=== PATIENT | male | born 1970 | race Caucasian/White ===

== ENCOUNTER 2017-11-08 11:58 | Inpatient (IN) | payer BC, OTHER ==
[~2017-11-08] VITALS: Ht 177.8 cm; Wt 87.1 kg
[2017-11-08 12:30] VITALS: BP 196/107
[2017-11-08] MEDS ORDERED: ACETAMINOPHEN 325 MG TABLET PO PRN (12:45)
[2017-11-08] MEDS ORDERED: MAG HYDROX/AL HYDROX/SIMETH 30 ML LIQUID UDC PO PRN (12:45)
[2017-11-08] MEDS ORDERED: MIRALAX 17 GM POWD.PACK PO PRN (12:45)
[2017-11-08] MEDS ORDERED: LORAZEPAM 1 MG TABLET PO PRN (12:45)
[2017-11-08] MEDS ORDERED: IBUPROFEN 400 MG TABLET PO PRN (12:45)
[2017-11-08] MEDS ORDERED: NICOTINE 14 MG/24HR PATCH TD PRN (12:45)
[2017-11-08] MEDS ORDERED: LOPERAMIDE HCL 2 MG CAPSULE PO PRN ×2 (12:45)
[2017-11-08] MEDS ORDERED: NICOTINE POLACRILEX 4 MG GUM-PK OF TEN BC PRN (12:45)
[2017-11-08] MEDS ORDERED: DICYCLOMINE HCL 20 MG TABLET PO PRN (12:45)
[2017-11-08] MEDS ORDERED: MAGNESIUM HYDROXIDE 30 ML LIQUID UDC PO PRN (12:45)
[2017-11-08] MEDS ORDERED: ONDANSETRON ODT 4 MG TAB.RAPDIS SL PRN (12:45)
[2017-11-08] MEDS ORDERED: ONDANSETRON 4 MG/2 ML VIAL IM PRN (12:45)
[2017-11-08] MEDS ORDERED: THIAMINE HCL 200 MG/2 ML VIAL IM ONE (12:45)
[2017-11-08] MEDS ORDERED: diphenhydrAMINE 50 MG CAPSULE PO PRN (12:45)
[2017-11-08 13:27] LABS: ALANINE AMINOTRANSFERASE 51 U/L (16-63); ALKALINE PHOSPHATASE 44 U/L (50-136); AMYLASE 60 U/L (25-115); ASPARTATE AMINOTRANSFERASE 25 U/L (15-37); BILIRUBIN,TOTAL 0.6 mg/dL (0.2-1.0); CARBON DIOXIDE 28 mmol/L (21-32); CHLORIDE 104 mmol/L (98-107); CREATININE 1.3 mg/dL (0.6-1.3); GLUCOSE 93 mg/dL (74-106); TOTAL PROTEIN, SERUM 8.2 g/dL (6.4-8.2); UREA NITROGEN, BLOOD 17 mg/dL (7-18)
[2017-11-08 13:33] LABS: ETHANOL < 3 MG/DL (0-0)
[2017-11-08 14:15] LABS: BASOPHILS # (AUTO) 0.1 K/uL (0.0-8.0); BASOPHILS % (AUTO) 0.7 % (0.0-2.0); EOSINOPHILS # (AUTO) 0.1 K/uL (0.0-0.7); HEMATOCRIT 48.1 % (36.7-47.1); LYMPHOCYTES % (AUTO) 28.5 % (20.5-51.5); MEAN CORPUSCULAR HEMOGLOBIN 31.9 uug (23.8-33.4); MEAN CORPUSCULAR HGB CONC 35 g/dL (32.5-36.3); MEAN CORPUSCULAR VOLUME 90.4 fL (73.0-96.2); MONOCYTES # (AUTO) 0.5 K/uL (2.0-10.0); MONOCYTES % (AUTO) 7.4 % (0.0-11.0); NEUTROPHILS # (AUTO) 4.4 K/uL (1.8-8.9); NEUTROPHILS % (AUTO) 62.4 % (38.5-71.5); PLATELET COUNT (AUTO) 245 K/uL (152-348); RED BLOOD CELL COUNT(AUTO) 5.33 MIL/uL (4.06-5.63); WHITE BLOOD COUNT (AUTO) 7.1 K/uL (3.6-10.2)
[2017-11-08] MEDS: CLONIDINE HCL 0.1 MG TABLET PO PRN (15:24)
[2017-11-08] MEDS: LORAZEPAM 1 MG TABLET PO PRN ×2 (15:24→21:17)
[2017-11-08 15:49] LABS: *AMPHETAMINE, URINE NEGATIVE (NEGATIVE); *BARBITURATE, URINE NEGATIVE (NEGATIVE)
[2017-11-08 15:50] LABS: *CANNABINOID, URINE NEGATIVE (NEGATIVE); *COCCAINE, URINE NEGATIVE (NEGATIVE); *OPIATE, URINE NEGATIVE (NEGATIVE); *PHENCYCLIDINE SCREEN,URINE NEGATIVE (NEGATIVE)
[2017-11-08 16:00] VITALS: BP 140/84
[2017-11-08 20:00] VITALS: BP_SYST 126; BP_SYST 153; BP_DIAS 73; BP_DIAS 81
[2017-11-08] MEDS ORDERED: PNEUMOCOCCAL 23-VAL P-SAC VAC 0.5 ML VIAL IM ONE (21:00)
[2017-11-09] VITALS (8 sets, daily range): BP systolic 132–167; BP diastolic 80–97
[2017-11-09] MEDS: CLONIDINE HCL 0.1 MG TABLET PO PRN (01:17)
[2017-11-09] MEDS ORDERED: TUBERCULIN,PURIF.PROT.DERIV. 5 TU/0.1 ML TEST ID ONE (09:00)
[2017-11-09] MEDS: THIAMINE HCL 100 MG TABLET PO SCH (09:14)
[2017-11-09] MEDS: VENLAFAXINE XR 75 MG CAP.SR.24H PO SCH (09:14)
[2017-11-09] MEDS: FOLIC ACID 1 MG TABLET PO SCH (09:15)
[2017-11-09] MEDS: MULTIVITAMINS,THERAPEUTIC TABLET PO SCH (09:15)
[2017-11-09] MEDS: LORAZEPAM 1 MG TABLET PO PRN (09:28)
[2017-11-09 10:08] LABS: HEPATITIS B SURFACE AG Negative (Negative)
[2017-11-09] MEDS ORDERED: LORAZEPAM 1 MG TABLET PO SCH ×2 (15:00→21:00)
[2017-11-09] MEDS: CLONIDINE HCL 0.1 MG TABLET PO SCH (20:33)
[2017-11-09] MEDS: GABAPENTIN 300 MG CAPSULE PO SCH (20:34)
[2017-11-10] VITALS (7 sets, daily range): BP systolic 135–159; BP diastolic 82–96
[2017-11-10] MEDS: CLONIDINE HCL 0.1 MG TABLET PO PRN (00:57)
[2017-11-10] MEDS ORDERED: hydrALAZINE HCL 50 MG TABLET PO ONE (05:30)
[2017-11-10] MEDS ORDERED: hydrALAZINE HCL 50 MG TABLET ONE (05:37)
[2017-11-10] MEDS: GABAPENTIN 300 MG CAPSULE PO SCH ×2 (08:54→20:16)
[2017-11-10] MEDS: THIAMINE HCL 100 MG TABLET PO SCH (08:54)
[2017-11-10] MEDS: CLONIDINE HCL 0.1 MG TABLET PO SCH ×3 (08:54→20:16)
[2017-11-10] MEDS: MULTIVITAMINS,THERAPEUTIC TABLET PO SCH (08:55)
[2017-11-10] MEDS: VENLAFAXINE XR 75 MG CAP.SR.24H PO SCH (08:55)
[2017-11-10] MEDS: FOLIC ACID 1 MG TABLET PO SCH (08:55)
[2017-11-10] MEDS ORDERED: LORAZEPAM 1 MG TABLET PO SCH (09:00)
[2017-11-10] MEDS ORDERED: AMLODIPINE 5 MG TABLET PO ONE (13:00)
[2017-11-10] MEDS ORDERED: hydrALAZINE HCL 50 MG TABLET PO PRN (13:00)
[2017-11-10] MEDS ORDERED: CLON0.1T14 PO (20:25)
[2017-11-10] MEDS ORDERED: HYDR25CA PO (20:25)
[2017-11-10] MEDS ORDERED: GABA-534 PO (20:25)
[2017-11-10] MEDS ORDERED: AMLO5TAB2 PO (20:25)
[2017-11-10] MEDS ORDERED: DIPH50CA37 PO (20:25)
[2017-11-10] MEDS ORDERED: VENL75CA56 PO (20:25)
[2017-11-10] MEDS: AMLODIPINE 5 MG TABLET PO SCH (21:45)
[2017-11-11] VITALS: BP 141/83
[2017-11-11 08:00] VITALS: BP 139/89
[2017-11-11 08:28] VITALS: BP 143/99
[2017-11-11] MEDS: AMLODIPINE 5 MG TABLET PO SCH (08:28)
[2017-11-11] MEDS: CLONIDINE HCL 0.1 MG TABLET PO SCH (08:28)
[2017-11-11] MEDS: VENLAFAXINE XR 75 MG CAP.SR.24H PO SCH (08:28)
[2017-11-11] MEDS: THIAMINE HCL 100 MG TABLET PO SCH (08:28)
[2017-11-11] MEDS: FOLIC ACID 1 MG TABLET PO SCH (08:28)
[2017-11-11] MEDS: MULTIVITAMINS,THERAPEUTIC TABLET PO SCH (08:28)
[2017-11-11] MEDS: GABAPENTIN 300 MG CAPSULE PO SCH (08:28)
[2017-11-11] MEDS ORDERED: AMLODIPINE 5 MG TABLET PO SCH (09:00)
== END 2017-11-11 09:32 | disposition other institution (70) | DRG 895 ==
LOC: SRC 12:11
PROVIDERS: ADMIT Internal Medicine; ATTEND Internal Medicine
PROC: HZ2ZZZZ Detoxification Services for Substance Abuse Treatment (ICD-10-PCS; principal; 2017-11-08)
PROC: HZ41ZZZ Group Counseling for Substance Abuse Treatment, Behavioral (ICD-10-PCS; 2017-11-09)
DX: F10.230 Alcohol dependence with withdrawal, uncomplicated (principal); I15.9 Secondary hypertension, unspecified; F12.10 Cannabis abuse, uncomplicated; F41.9 Anxiety disorder, unspecified; Z80.8 Family history of malignant neoplasm of other organs or systems; Z81.8 Family history of other mental and behavioral disorders; Z82.49 Family history of ischemic heart disease and other diseases of the circulatory system; F17.220 Nicotine dependence, chewing tobacco, uncomplicated; Y90.0 Blood alcohol level of less than 20 mg/100 ml
CPT/HCPCS: 36415; 70030-TC; 80307; 83735; 85025; 86580; 86592; 86705; 86803; 87340; 87806; 90732; A4663; G0480; J3411